=== PATIENT | male | born 1960 | race Caucasian/White ===

== ENCOUNTER 2022-10-09 16:26 | Inpatient (IN) | payer MEDICAID, MEDICARE ==
[2022-10-09] MEDS ORDERED: Acetaminophen/HYDROcodone 325-5 MG Tab PO PRN (17:06)
[2022-10-09] MEDS ORDERED: Acetaminophen 325 MG Tab PO PRN (17:06)
[2022-10-09] MEDS ORDERED: Ondansetron 4 MG Tab.DIS PO PRN (17:06)
[2022-10-09] MEDS: Aspirin 325 MG Tab.EC PO SCH (17:55)
[2022-10-09] MEDS: cefTRIAXone 2 GM Vial IVPUSH SCH (17:55)
[2022-10-09] MEDS: Sodium Chloride 0.9% 1,000 ML IV SCH ×2 (17:56→19:41)
[2022-10-10] MEDS: Sodium Chloride 0.9% 1,000 ML IV SCH ×4 (01:43→21:46)
[2022-10-10 07:10] LABS: ANION GAP 10.2 mmol/L (5-15)
[2022-10-10] MEDS: cefTRIAXone 2 GM Vial IVPUSH SCH (08:03)
[2022-10-10] MEDS: Aspirin 325 MG Tab.EC PO SCH (08:03)
[2022-10-10] MEDS ORDERED: Hydrocortisone 2.5% Crm 30 GM Tube TOP PRN (08:42)
[2022-10-10] MEDS: Magnesium Chloride 64 MG Tab.ER PO SCH (09:01)
[2022-10-10] MEDS: Empagliflozin 10 MG Tab PO SCH (09:02)
[2022-10-10] MEDS: Tamsulosin 0.4 MG Cap.ER PO SCH (09:03)
[2022-10-10] MEDS: buPROPion 150 MG Tab.ER PO SCH (09:03)
[2022-10-10] MEDS: Furosemide 40 MG Tab PO SCH (09:03)
[2022-10-10] MEDS: Metoprolol Succinate 25 MG Tab.ER PO SCH (09:04)
[2022-10-10] MEDS: Potassium Chloride 10 MEQ Tab.ER PO SCH (09:04)
[2022-10-10] MEDS: Enoxaparin 40 MG/0.4 ML Syringe SUBCUT SCH (09:04)
[2022-10-10] MEDS: SACUBITRIL PO SCH ×2 (16:21→20:16)
[2022-10-10] MEDS: VALSARTAN PO SCH ×2 (16:21→20:16)
[2022-10-11] MEDS: Sodium Chloride 0.9% 1,000 ML IV SCH (04:04)
[2022-10-11] MEDS: Magnesium Chloride 64 MG Tab.ER PO SCH (08:00)
[2022-10-11] MEDS: Furosemide 40 MG Tab PO SCH (08:00)
[2022-10-11] MEDS: cefTRIAXone 2 GM Vial IVPUSH SCH (08:00)
[2022-10-11] MEDS: Metoprolol Succinate 25 MG Tab.ER PO SCH (08:01)
[2022-10-11] MEDS: Potassium Chloride 10 MEQ Tab.ER PO SCH (08:01)
[2022-10-11] MEDS: Tamsulosin 0.4 MG Cap.ER PO SCH (08:03)
[2022-10-11] MEDS: Aspirin 325 MG Tab.EC PO SCH (08:03)
[2022-10-11] MEDS: Empagliflozin 10 MG Tab PO SCH (08:04)
[2022-10-11] MEDS: SACUBITRIL PO SCH (08:04)
[2022-10-11] MEDS: VALSARTAN PO SCH (08:04)
[2022-10-11] MEDS: Enoxaparin 40 MG/0.4 ML Syringe SUBCUT SCH (08:05)
[2022-10-11] MEDS: buPROPion 150 MG Tab.ER PO SCH (11:12)
== END 2022-10-11 11:55 | disposition home or self-care (01) | DRG 301 ==
LOC: VM.MS 17:04
PROVIDERS: ADMIT Family Medicine; ATTEND Family Medicine
DX: I80.9 Phlebitis and thrombophlebitis of unspecified site (principal); J43.1 Panlobular emphysema; I50.9 Heart failure, unspecified; F15.10 Other stimulant abuse, uncomplicated
CPT/HCPCS: 36415; 80048; 83605; 85025; A9270-GY; J0696; J1650; J7030

== ENCOUNTER 2023-11-06 20:58 | Emergency (ER) | payer MEDICARE, MEDICAID ==
[2023-11-06] MEDS: Acetaminophen/HYDROcodone 325-5 MG Tab PO ONE (22:48)
== END 2023-11-06 23:26 | disposition home or self-care (01) ==
LOC: VM.ED 20:58
DX: S20.211A Contusion of right front wall of thorax, initial encounter (principal); I50.9 Heart failure, unspecified; J44.9 Chronic obstructive pulmonary disease, unspecified; F17.200 Nicotine dependence, unspecified, uncomplicated; Z79.82 Long term (current) use of aspirin; Z79.899 Other long term (current) drug therapy; W18.09XA Striking against other object with subsequent fall, initial encounter
CPT/HCPCS: 71101; 99283; A9270